=== PATIENT | male | born 1975 | race Caucasian/White ===

== ENCOUNTER 2023-06-27 17:24 | Emergency (ER) | payer OTHER, SELFPAY ==
--- NOTE | 2023-06-27 17:15 | RT.EKG_ITS ---
APPROVED REPORT Exam: Resting ECG Reason for Exam: Chest pain Patient Location: E HR:72 bpm ECG Measurements Heart Rate [address] 150 P 55 QRSd 92 QRS 48 QT 383 T 0 QTc 421 Conclusion Sinus rhythm...normal P axis, V-rate 60- 99 T wave inversion in lead III. No previous for comparison. No STEMI
[2023-06-27 17:26] VITALS: BP 117/74; PULSE 75; RESP 18; TEMP 36.6; O2SAT 99
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
--- NOTE | 2023-06-27 20:00 | DI.CT_ITS ---
Exam(s) CT CHEST/ABD/PEL W EXAM: CT CHEST/ABD/PEL W CLINICAL HISTORY: trauma. TECHNIQUE: Imaging Protocol: Axial computed tomography images with coronal and sagittal reformatted images were created and reviewed CONTRAST MATERIAL: Intravenous: Omnipaque 350 Contrast volume:100 ml Oral: no COMPARISON: No exams were available for comparison FINDINGS: CHEST: Tracheobronchial tree: Patent where visualized. Pulmonary parenchyma: Minimal posterior dependent atelectasis. No consolidation or dominant measurab le mass. Pleura: Single tiny air bubble seen anterior adjacent to the distal end of the right 1st rib. No add itional rib fractures identified. The sternum and shoulders appear intact. No pneumothorax. Lymph nodes: Within normal limits. Aorta: Thoracic portion non-dilated. Heart: Normal size. No pericardial effusion Bones: Disruption at the right 1st costochondral junction with mild multiple adjacent air bubbles. S alexx air bubble noted adjacent to the anterior aspect of the right 1st rib. No lytic or blastic les ions.No spine compression fractures. Soft tissues: Multiple air bubbles outside the anterior right chest wall. ABDOMEN: Liver: Normal density. No measurable mass. Gallbladder and biliary tract: No radiodense calculus or dilation. Pancreas: Normal density, no abnormal calcifications or inflammatory process. Spleen: Normal. Kidneys: Normal size, contour and axis. Stones noted at the mid left kidney. No obstructive uropath y. No suspicious masses seen. Adrenal glands: No masses seen. Aorta: Abdominal portion non-dilated. Lymph nodes: Within normal limits. Soft tissues: Unremarkable. PELVIS: Bladder: Symmetric distention, no gross wall thickening. Bowel: No obstruction or bowel wall thickening. Peritoneal cavity: No ascites, collection or mesenteric inflammatory response. Bones: Degenerative disc changes L5-S1. No evidence of pelvic or spine fracture. Reproductive organs: Within normal limits. IMPRESSION: Fracture through the right anterior 1st costochondral junction with multiple surrounding air bubbles No acute abnormality in the abdomen or pelvis.. RADIATION DOSE DELIVERED: Total DLP DATA REPOSITORY: All CT scans at this facility are submitted to the National Radiology Data Registry (NRDR) Dose Index Registry (DIR) with the [employer] (ACR). RADIATION OPTIMIZATION: All CT scans at this facility use at least one of these dose optimization te chniques: automated exposure control; mA and/or kV adjustment per patient size (includes targeted exa ms where dose is matched to clinical indication); or iterative reconstruction.
[2023-06-27] MEDS: Lactated Ringers 1,000 ML 1000 ML IV (20:29)
[2023-06-27] MEDS: ACETAMINOPHEN 1,000 MG/100 ML BTL 400 MG IVPB (20:29)
[2023-06-27 20:34] LABS: Abs Immature Grans 0.04 10^3/uL (0.0-0.06); Absolute Eosinophil Count 0.58 10^3/uL (0.0-0.7); Absolute Lymphocyte Count 1.17 10^3/uL (1.2-3.4); Basophils % 0.5; Eosinophils % 4.4; HCT 39.5 % (40.0-50.0); HGB 13.4 g/dL (13.5-17.5); Immature Grans % 0.3; Lymphocytes % 8.9; MCH 31.5 pg (27.0-33.0); MCHC 33.9 % (32.0-36.0); MCV 93 fL (80-95); Monocytes % 8.1; Neutrophils % 77.8; Platelet Count 253 10^3/uL (130-400); RBC 4.25 10^6/uL (4.36-5.78); RDW 12.1 % (11.8-14.1); RDW-SD 41.4 fL; WBC 13.16 10^3/uL (4.4-10.8)
[2023-06-27 20:35] LABS: Absolute Basophil Count 0.07 10^3/uL (0.0-0.2); Absolute Monocyte Count 1.07 10^3/uL (0.1-0.8); Absolute Neutrophil Count 10.24 10^3/uL (1.2-6.7)
[2023-06-27 20:49] LABS: ALT 54 U/L (16-63); AST 47 U/L (15-37); Albumin 4.5 g/dL (3.4-5.0); Alkaline Phosphatase 80 U/L (46-116); Anion Gap 10.9 mmol/L (3-11); BUN 17 mg/dL (7-18); Bilirubin, Total 0.6 mg/dL (0.2-1.0); CO2 26.1 mmol/L (21.0-32.0); Calcium 9.1 mg/dL (8.5-10.1); Chloride 102 mmol/L (98-107); Glucose 94 mg/dL (74-106); Lipase 176 U/L (16-77); Magnesium 2.2 mg/dL (1.8-2.4); Potassium 3.7 mmol/L (3.5-5.1); Sodium 139 mmol/L (136-145); Total Protein 7.7 g/dL (6.4-8.2); Troponin I < 50 ng/L (<or=60)
[2023-06-27 21:03] LABS: Prothrombin Time 10.4 sec (9.3-11.0)
[2023-06-27] MEDS: Omnipaque 350 MG/ML 100 ML BTL IJ (21:38)
[2023-06-27] MEDS: Normal Saline - Diluent 50 ML VIAL IJ (21:38)
[2023-06-27 22:01] LABS: Bilirubin Negative (Negative); Blood Negative (Negative); Clarity Clear (Clear); Glucose Negative (Negative); Ketones Negative (Negative); Leukocyte Esterase Negative (Negative); Nitrite Negative (Negative); Specific Gravity 1.015 (1.005-1.025); Urobilinogen 0.2 mg/dL (Up to 0.2); pH 6.5 (5-8)
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
== END 2023-06-27 23:26 | disposition home or self-care (01) ==
PROVIDERS: Emergency Provider Emergency Medicine Emergency Medical Services
DX: S23.29XA Dislocation of other parts of thorax, initial encounter (principal); R74.8 Abnormal levels of other serum enzymes; D64.9 Anemia, unspecified; V19.9XXA Pedal cyclist (driver) (passenger) injured in unspecified traffic accident, initial encounter; Y93.55 Activity, bike riding; Y92.9 Unspecified place or not applicable; Y99.9 Unspecified external cause status
CPT/HCPCS: 74177; 80053; 83690; 93005; 96365; 99285; 71260; 81003; 83735; 84484; 85025; 85610; 85730; 93010; 99284; J0131; J3490